=== PATIENT | female | born 1995 | race Caucasian/White ===

== ENCOUNTER 2016-06-15 22:38 | Emergency (ER) | payer BC ==
[2016-06-15 22:48] VITALS: PULSE 98; RESP 16; O2SAT 99
[2016-06-15 23:47] LABS: BASOPHILS % (AUTO) 1 % (0-3); EOSINOPHILS % (AUTO) 1 % (0-9); HEMATOCRIT 33 % (35-47); MEAN CORPUSCULAR VOLUME 82 fL (81-99); MONOCYTES % (AUTO) 5.9 % (0-12); NEUTROPHILS % (AUTO) 77.6 % (37-80)
[2016-06-15 23:51] LABS: CALCIUM 10.8 mg/dl (8.5-10.1); POTASSIUM 3.4 mMol/L (3.5-5.1); THYROID STIMULATING HORMONE 1.149 uU/ml (0.358-3.740)
[2016-06-15 23:57] LABS: NORMAL RBCS PRESENT
[2016-06-16 01:22] VITALS: TEMP 96.4
[2016-06-16 01:23] VITALS: BP 123/73
== END 2016-06-16 00:48 | disposition home or self-care (01) ==
LOC: ED 22:38
DX: N92.0 Excessive and frequent menstruation with regular cycle (principal)
CPT/HCPCS: 36415; 80048; 84443; 84703; 85025; 99282; 99283